=== PATIENT | female | born 1980 | race Caucasian/White ===

== ENCOUNTER 2025-01-13 20:26 | Emergency (ER) | payer SELFPAY ==
[~2025-01-13] VITALS: Ht 154.9 cm; Wt 68.0 kg
[2025-01-13 21:03] VITALS: O2SAT 99
[2025-01-13] MEDS ORDERED: IBUP-2029 MT (22:39)
[2025-01-13 22:49] VITALS: BP 148/85; PULSE 70; RESP 12; TEMP 36.8; O2SAT 100
== END 2025-01-13 22:58 | disposition home or self-care (01) ==
LOC: ER 20:26
DX: S09.90XA Unspecified injury of head, initial encounter (principal); W22.09XA Striking against other stationary object, initial encounter; Y93.89 Activity, other specified; Y92.89 Other specified places as the place of occurrence of the external cause; Y99.8 Other external cause status
CPT/HCPCS: 81025; 99284